=== PATIENT | female | born 1975 | race Caucasian/White ===

== ENCOUNTER → 2021-11-13 | Outpatient (CLI) | payer OTHER ==
[~2021-11-13] MED LIST: AMBI5TAB PO; ATIV1TAB10 PO; DRIS50003 PO; ERGO500029; LIDO1ADH20 TP; MELO15TA28 PO; METH-1164 PO; ONDA-83 PO; TOPI200T7 PO; ZOLM2.5T14 PO
== END ==
LOC: M PLALAB 13:15
PROVIDERS: ATTEND Surgery
DX: Z15.09 Genetic susceptibility to other malignant neoplasm (principal)

== ENCOUNTER → 2021-11-13 | Outpatient (CLI) | payer OTHER ==
[2021-11-13 13:20] VITALS: BP 124/78
== END ==
LOC: M WHCPRO 11:47
PROVIDERS: ATTEND Surgery
DX: C50.412 Malignant neoplasm of upper-outer quadrant of left female breast (principal)

== ENCOUNTER → 2021-11-19 | Outpatient (CLI) | payer OTHER ==
[~2021-11-19] MED LIST changes: -ERGO500029
[2021-11-19 12:15] LABS: BLOOD UREA NITROGEN 10 MG/DL (7-18); CALCIUM LEVEL 9.1 MG/DL (8.5-10.1); CARBON DIOXIDE LEVEL 30 MEQ/L (21-32); CHLORIDE LEVEL 105 MEQ/L (98-107); CREATININE FOR GFR 0.74 MG/DL (0.55-1.30); GLOMERULAR FILTRATION RATE > 60.0 (>58); GLUCOSE, FASTING 101 MG/DL (70-100); POTASSIUM SERUM 4.2 MEQ/L (3.5-5.1); SODIUM LEVEL 138 MEQ/L (136-145)
== END ==
LOC: M PLALAB 08:41
PROVIDERS: ATTEND Surgery
DX: C50.412 Malignant neoplasm of upper-outer quadrant of left female breast (principal)

== ENCOUNTER → 2021-11-28 | Outpatient (CLI) | payer OTHER ==
[~2021-11-28] MED LIST changes: +ERGO500029; +PROHANCE 279.3MG/ML 15ML VIAL As Ordered ONE
== END ==
LOC: M RAD 14:59
PROVIDERS: ATTEND Surgery
DX: C50.412 Malignant neoplasm of upper-outer quadrant of left female breast (principal)
CPT/HCPCS: 76856; A9576; C8908

== ENCOUNTER → 2021-11-28 | Outpatient (CLI) | payer OTHER ==
[~2021-11-28] MED LIST changes: -PROHANCE 279.3MG/ML 15ML VIAL As Ordered ONE
== END ==
LOC: M WHC 12:28
PROVIDERS: ATTEND Nurse Practitioner Family
DX: T83.31XA Breakdown (mechanical) of intrauterine contraceptive device, initial encounter (principal)

== ENCOUNTER → 2021-11-29 | Outpatient (CLI) | payer OTHER | LOC: M ONCR 10:09 | PROVIDERS: ATTEND General Practice | DX: C50.412 Malignant neoplasm of upper-outer quadrant of left female breast (principal); E78.5 Hyperlipidemia, unspecified; F31.9 Bipolar disorder, unspecified; G43.909 Migraine, unspecified, not intractable, without status migrainosus; M54.9 Dorsalgia, unspecified; Z79.1 Long term (current) use of non-steroidal anti-inflammatories (NSAID); Z79.899 Other long term (current) drug therapy; Z80.3 Family history of malignant neoplasm of breast; Z80.9 Family history of malignant neoplasm, unspecified; Z88.0 Allergy status to penicillin; Z88.8 Allergy status to other drugs, medicaments and biological substances ==

== ENCOUNTER → 2021-12-06 | Outpatient (CLI) | payer OTHER ==
[~2021-12-06] MED LIST changes: +GASTROGRAFIN SOLUTION 30ML (Q9963) As Ordered ONE; +ISOVUE-370 76% 100ML VIAL As Ordered ONE
== END ==
LOC: M RAD 08:41
PROVIDERS: ATTEND Nurse Practitioner Family
DX: N85.9 Noninflammatory disorder of uterus, unspecified (principal); R19.00 Intra-abdominal and pelvic swelling, mass and lump, unspecified site
CPT/HCPCS: 74177; Q9963; Q9967

== ENCOUNTER → 2022-01-12 | Outpatient (CLI) | payer OTHER ==
[~2022-01-12] MED LIST changes: +ACET-907 PO; -ERGO500029; +ERGO500029 PO; +GAS-62.5 PO; -GASTROGRAFIN SOLUTION 30ML (Q9963) As Ordered ONE; +IBUP-1114 PO; -ISOVUE-370 76% 100ML VIAL As Ordered ONE
== END ==
LOC: M LABSMTC 11:31
PROVIDERS: ATTEND Anesthesiology
DX: Z01.812 Encounter for preprocedural laboratory examination (principal); Z20.822 Contact with and (suspected) exposure to COVID-19

== ENCOUNTER 2022-01-16 07:48 | Observation (INO) | payer OTHER ==
[~2022-01-16] VITALS: Ht 172.7 cm; Wt 71.5 kg
[2022-01-16] VITALS (7 sets, daily range): BP systolic 111–124; BP diastolic 65–92
[~2022-01-16 07:48] MED LIST changes: +CLINDAMYCIN 900 MG in IV 1 EA IV ONE; +HEPARIN SOD (PORCINE) 5000UNITS/ML 1ML VIAL/SYRINGE SQ ONE
[2022-01-16] MEDS ORDERED: LR 1,000 ML IV SCH ×2 (08:15→15:30)
[2022-01-16] MEDS ORDERED: ROCURONIUM BROMIDE 50 MG/5 ML VIAL As Ordered ONE ×2 (10:35→12:37)
[2022-01-16] MEDS ORDERED: propofoL 200 MG/20 ML VIAL As Ordered ONE (10:35)
[2022-01-16] MEDS ORDERED: LIDOCAINE 2% 100MG/5ML SDV (FOR ANES.) As Ordered ONE (10:35)
[2022-01-16] MEDS ORDERED: fentaNYL 100 MCG/2 ML INJECTION As Ordered ONE (10:36)
[2022-01-16] MEDS ORDERED: MIDAZOLAM INJ 2MG/2ML VIAL (J2250 PER 1MG) As Ordered ONE (10:36)
[2022-01-16] MEDS ORDERED: BUPIVACAINE LIPOSOME/PF 1.3% 20ML VIAL (13.3MG/ML)(EXPAREL) As Ordered ONE (10:37)
[2022-01-16] MEDS ORDERED: GENTAMICIN SULF 80MG/2ML VIAL As Ordered ONE (10:37)
[2022-01-16] MEDS ORDERED: BUPIVACAINE HCL 0.25% 10ML VIAL As Ordered ONE (10:37)
[2022-01-16] MEDS ORDERED: CLINDAMYCIN 900 MG in IV 1 EA IV ONE (10:40)
[2022-01-16] MEDS ORDERED: SCOPOLAMINE 1MG TRANSDERMAL PATCH TOP ONE (11:00)
[2022-01-16] MEDS ORDERED: dexameTHASONE 4 MG/ML 1ML VIAL (J1100 PER 1MG) As Ordered ONE (11:36)
[2022-01-16] MEDS ORDERED: METOCLOPRAMIDE INJ 10MG/2ML VIAL (J2765 PER 1) As Ordered ONE (11:59)
[2022-01-16] MEDS ORDERED: ONDANSETRON 4MG 2ML VIAL As Ordered ONE ×2 (11:59→15:43)
[2022-01-16] MEDS ORDERED: HYDROmorphone HCL 2MG/ML 1ML VIAL As Ordered ONE (11:59)
[2022-01-16] MEDS ORDERED: ACETAMINOPHEN 1000MG 100ML IV BTL (OFIRMEV) (J0131 PER 10MG) As Ordered ONE (11:59)
[2022-01-16] MEDS ORDERED: NITROGLYCERIN 2% OINT 1 GM *U/D* PKT As Ordered ONE (14:31)
[2022-01-16] MEDS ORDERED: ONDANSETRON 4MG 2ML VIAL IV PRN ×2 (15:15→15:30)
[2022-01-16] MEDS ORDERED: MORPHINE 2 MG/ML 1ML VIAL IV PRN (15:25)
[2022-01-16] MEDS ORDERED: NITROGLYCERIN 2% OINT 1 GM *U/D* PKT TOP PRN (15:25)
[2022-01-16] MEDS ORDERED: HYDROMORPHONE HCL 0.5 MG/ 0.5 ML SYRINGE (J1170 PER 1) IV PRN (15:30)
[2022-01-16] MEDS ORDERED: fentaNYL 100 MCG/2 ML INJECTION IV PRN (15:30)
[2022-01-16] MEDS ORDERED: oxyCODONE 5MG TAB PO PRN (15:30)
[2022-01-16] MEDS ORDERED: PROMETHAZINE 25MG/ML 1ML VIAL IV PRN (16:05)
[2022-01-16] MEDS: LR 1,000 ML IV SCH (18:00)
[2022-01-16] MEDS ORDERED: TOPI50TA9 PO (18:47)
[2022-01-16] MEDS ORDERED: IBUP1TAB6 PO (18:47)
[2022-01-16] MEDS ORDERED: ZOLM5TAB20 PO (18:47)
[2022-01-16] MEDS ORDERED: LIDO1PAD TOP (18:47)
[2022-01-16] MEDS ORDERED: SIME80CH5 PO (18:47)
[2022-01-16] MEDS ORDERED: ZOLP10TA2 PO (18:47)
[2022-01-16] MEDS ORDERED: HOME MED LIST COMPLETE! XX SCH (18:50)
[2022-01-16] MEDS: CLINDAMYCIN 900 MG in IV 1 EA IV SCH (19:58)
[2022-01-16] MEDS: traMADol 50 MG TAB PO PRN (21:20)
[2022-01-16] MEDS: HEPARIN SOD (PORCINE) 5000UNITS/ML 1ML VIAL/SYRINGE SQ SCH (23:19)
[2022-01-17 02:00] VITALS: BP 118/70
[2022-01-17] MEDS: ACETAMINOPHEN TAB 650MG DOSE (2X325MG) PO PRN ×2 (02:09→09:15)
[2022-01-17] MEDS: CLINDAMYCIN 900 MG in IV 1 EA IV SCH ×2 (03:54→11:24)
[2022-01-17] MEDS: traMADol 50 MG TAB PO PRN ×2 (04:04→10:23)
[2022-01-17] MEDS: LR 1,000 ML IV SCH (04:35)
[2022-01-17 06:00] VITALS: BP 105/65
[2022-01-17] MEDS: HEPARIN SOD (PORCINE) 5000UNITS/ML 1ML VIAL/SYRINGE SQ SCH (06:17)
[2022-01-17 10:00] VITALS: BP 100/67
[2022-01-17] MEDS ORDERED: TRAM50TA2 PO (11:15)
[2022-01-17] MEDS ORDERED: NITR2OI TOP (11:15)
== END 2022-01-17 13:30 | disposition home or self-care (01) ==
LOC: M SDC 07:48 → M MS5PR 15:15
PROVIDERS: ADMIT Surgery; ATTEND Surgery
DX: C50.412 Malignant neoplasm of upper-outer quadrant of left female breast (principal); C77.9 Secondary and unspecified malignant neoplasm of lymph node, unspecified; G43.909 Migraine, unspecified, not intractable, without status migrainosus; F41.9 Anxiety disorder, unspecified; F32.A Depression, unspecified; G47.00 Insomnia, unspecified; Z88.0 Allergy status to penicillin; Z88.8 Allergy status to other drugs, medicaments and biological substances; Z79.899 Other long term (current) drug therapy
CPT/HCPCS: 19303; 19357; 36415; 38525; 78195; 86850; 86900; 86901; 88300; 88305; 88307; 88331; 96365; 96366; 96372; 96375; A9520; C1789; C9290; G0378; J0131; J1100; J1170; J1580; J1644; J2250; J2405; J2550; J2765; J3010

== ENCOUNTER 2022-01-30 07:19 | Day surgery (SDC) | payer OTHER ==
[~2022-01-30] VITALS: Ht 172.7 cm; Wt 69.9 kg
[~2022-01-30 07:19] MED LIST changes: -CLINDAMYCIN 900 MG in IV 1 EA IV ONE; -HEPARIN SOD (PORCINE) 5000UNITS/ML 1ML VIAL/SYRINGE SQ ONE; +IBUP1TAB6 PO; +LIDO1PAD TOP; +NITR2OI TOP; +SIME80CH5 PO; +TOPI50TA9 PO; +TRAM50TA2 PO; +ZOLM5TAB20 PO; +ZOLP10TA2 PO
[2022-01-30 08:00] LABS: HEMATOCRIT 39.2 % (36.0-47.0); HEMOGLOBIN 13.8 g/dl (12.0-15.5); MEAN CORPUSCULAR HEMOGLOBIN 34.3 pg (27.0-33.0); MEAN CORPUSCULAR HGB CONC 35.2 g/dl (32.0-36.5); MEAN CORPUSCULAR VOLUME 97.5 fl (80.0-96.0); PLATELET COUNT, AUTOMATED 404 10^3/uL (150-450); RED BLOOD COUNT 4.02 10^6/uL (4.00-5.40); WHITE BLOOD COUNT 5.3 10^3/uL (4.0-10.0)
[2022-01-30] MEDS ORDERED: MIDAZOLAM INJ 2MG/2ML VIAL (J2250 PER 1MG) As Ordered ONE (08:03)
[2022-01-30] MEDS ORDERED: LIDOCAINE 2% 100MG/5ML SDV (FOR ANES.) As Ordered ONE (08:03)
[2022-01-30] MEDS ORDERED: dexameTHASONE 4 MG/ML 1ML VIAL (J1100 PER 1MG) As Ordered ONE (08:03)
[2022-01-30] MEDS ORDERED: fentaNYL 100 MCG/2 ML INJECTION As Ordered ONE (08:03)
[2022-01-30] MEDS ORDERED: ONDANSETRON 4MG 2ML VIAL As Ordered ONE (08:03)
[2022-01-30] MEDS ORDERED: propofoL 200 MG/20 ML VIAL As Ordered ONE (08:03)
[2022-01-30] MEDS ORDERED: SCOPOLAMINE 1MG TRANSDERMAL PATCH TOP ONE (08:20)
[2022-01-30] MEDS ORDERED: BUPIVACAINE HCL 0.25% 30ML VIAL As Ordered ONE (08:24)
[2022-01-30] MEDS ORDERED: BUPIVACAINE LIPOSOME/PF 1.3% 20ML VIAL (13.3MG/ML)(EXPAREL) As Ordered ONE (08:24)
[2022-01-30] MEDS ORDERED: GENTAMICIN SULF 80MG/2ML VIAL As Ordered ONE (08:24)
[2022-01-30] MEDS ORDERED: CIPROFLOXACIN/D5W 400 MG/200 ML BAG (J0744) As Ordered ONE (08:49)
[2022-01-30] MEDS ORDERED: diphenhydrAMINE 50MG/ML VIAL As Ordered ONE (08:52)
[2022-01-30] MEDS ORDERED: CIPROFLOXACIN 400 MG in IV 1 EA IV ONE (09:25)
[2022-01-30] MEDS ORDERED: PHENYLephrine 500MCG 5ML (100MCG/ML) SYRINGE As Ordered ONE (09:26)
[2022-01-30] MEDS ORDERED: ePHEDrine SULFATE 25 MG/5 ML(5MG/ML) SYRINGE As Ordered ONE (09:43)
[2022-01-30] MEDS ORDERED: ACETAMINOPHEN 1000MG 100ML IV BAG As Ordered ONE (09:46)
[2022-01-30] MEDS ORDERED: METOCLOPRAMIDE INJ 10MG/2ML VIAL (J2765 PER 1) IV PRN ×2 (10:05→12:10)
[2022-01-30] MEDS ORDERED: ONDANSETRON 4MG 2ML VIAL IV PRN (10:05)
[2022-01-30] MEDS ORDERED: oxyCODONE 5MG TAB PO PRN ×2 (10:05→12:10)
[2022-01-30] MEDS ORDERED: LR 1,000 ML IV SCH (10:05)
[2022-01-30] MEDS ORDERED: fentaNYL 100 MCG/2 ML INJECTION IV PRN (10:05)
[2022-01-30 12:24] VITALS: BP 110/73
[2022-01-30] MEDS ORDERED: CIPR-249 PO (13:56)
[2022-01-30] MEDS ORDERED: TRAM50TA2 PO (13:57)
== END 2022-01-30 13:45 | disposition home or self-care (01) ==
LOC: M SDC 07:19
PROVIDERS: ATTEND Plastic Surgery Surgery of the Hand
DX: C50.412 Malignant neoplasm of upper-outer quadrant of left female breast (principal); Z98.82 Breast implant status; Z80.3 Family history of malignant neoplasm of breast; Z79.1 Long term (current) use of non-steroidal anti-inflammatories (NSAID); F41.9 Anxiety disorder, unspecified; F32.A Depression, unspecified; G43.909 Migraine, unspecified, not intractable, without status migrainosus; M54.2 Cervicalgia; E78.00 Pure hypercholesterolemia, unspecified; Z88.0 Allergy status to penicillin; Z88.8 Allergy status to other drugs, medicaments and biological substances
CPT/HCPCS: 19380; 85027; 87635; 88304; J0131; J0744; J1100; J1200; J1580; J2250; J2370; J2405; J2765; J3010

== ENCOUNTER → 2022-02-17 | Outpatient (CLI) | payer OTHER ==
[~2022-02-17] MED LIST changes: +CIPR-249 PO; +VENL37TA PO
== END ==
LOC: M WHC 13:14
PROVIDERS: ATTEND Specialist
DX: C50.912 Malignant neoplasm of unspecified site of left female breast (principal); M85.89 Other specified disorders of bone density and structure, multiple sites

== ENCOUNTER 2022-03-20 09:37 | Day surgery (SDC) | payer OTHER ==
[~2022-03-20] VITALS: Ht 172.7 cm; Wt 71.7 kg
[~2022-03-20 09:37] MED LIST changes: +CALTTAB6 PO
[2022-03-20] MEDS ORDERED: LR 1,000 ML IV SCH (10:05)
[2022-03-20] MEDS ORDERED: fentaNYL 100 MCG/2 ML INJECTION As Ordered ONE (10:42)
[2022-03-20] MEDS ORDERED: propofoL 200 MG/20 ML VIAL As Ordered ONE (10:42)
[2022-03-20] MEDS ORDERED: MIDAZOLAM INJ 2MG/2ML VIAL As Ordered ONE (10:42)
[2022-03-20] MEDS ORDERED: ONDANSETRON 4MG 2ML VIAL As Ordered ONE (10:42)
[2022-03-20] MEDS ORDERED: LIDOCAINE 2% 100MG/5ML SDV (FOR ANES.) As Ordered ONE (10:42)
[2022-03-20] MEDS ORDERED: CLINDAMYCIN 900 MG in IV 1 EA IV ONE (10:50)
[2022-03-20] MEDS ORDERED: LIDOCAINE 5% OINT 30GM TUBE As Ordered ONE (11:10)
[2022-03-20] MEDS ORDERED: SCOPOLAMINE 1MG TRANSDERMAL PATCH TOP ONE (11:10)
[2022-03-20] MEDS ORDERED: BUPIVACAINE HCL 0.25% 10ML VIAL As Ordered ONE (12:22)
[2022-03-20] MEDS ORDERED: BUPIVACAINE LIPOSOME/PF 1.3% 20ML VIAL (13.3MG/ML)(EXPAREL) As Ordered ONE (12:23)
[2022-03-20] MEDS ORDERED: GENTAMICIN SULF 80MG/2ML VIAL As Ordered ONE (12:23)
[2022-03-20] MEDS ORDERED: diphenhydrAMINE 50MG/ML VIAL As Ordered ONE (12:53)
[2022-03-20] MEDS ORDERED: ACETAMINOPHEN 1000MG 100ML IV BAG As Ordered ONE (14:05)
[2022-03-20] MEDS ORDERED: METOCLOPRAMIDE INJ 10MG/2ML VIAL As Ordered ONE (14:05)
[2022-03-20] MEDS ORDERED: TRAM50TA2 PO (14:44)
[2022-03-20] MEDS ORDERED: SEVOFLURANE INHAL SOLN 250 ML BTL As Ordered ONE (14:53)
[2022-03-20 16:09] VITALS: BP 128/77
[2022-04-01] MEDS ORDERED: ONDA-84 PO (11:32)
[2022-04-01] MEDS ORDERED: PROC10TA5 PO (11:35)
[2022-04-01] MEDS ORDERED: MAGICMW SSP (11:38)
[2022-04-01] MEDS ORDERED: LIDO1CRE42 TOP (11:39)
== END 2022-03-20 16:16 | disposition home or self-care (01) ==
LOC: M SDC 09:37
PROVIDERS: ATTEND Plastic Surgery Surgery of the Hand
DX: T81.31XA Disruption of external operation (surgical) wound, not elsewhere classified, initial encounter (principal); C50.912 Malignant neoplasm of unspecified site of left female breast; M54.9 Dorsalgia, unspecified; F41.9 Anxiety disorder, unspecified; F32.A Depression, unspecified; Z79.899 Other long term (current) drug therapy; G43.909 Migraine, unspecified, not intractable, without status migrainosus
CPT/HCPCS: 11970; 87428; 88300; 88304; C9290; J1100; J2405

== ENCOUNTER → 2022-04-07 | Outpatient (CLI) | payer OTHER ==
[~2022-04-07] MED LIST changes: +LIDO1CRE42 TOP; +LIDOCAINE 1% MDV 20ML VIAL As Ordered ONE; +MAGICMW SSP; +MIDAZOLAM INJ 2MG/2ML VIAL As Ordered ONE; +NS 1,000 ML IV SCH; +ONDA-84 PO; +PROC10TA5 PO; +PROMETHAZINE 25MG/ML 1ML VIAL As Ordered ONE; +VANCOMYCIN 1000MG/20ML VIAL As Ordered ONE; +VANCOMYCIN HCL 1,000 MG, VIAL MATE ADAPTER 1 EACH in NS 250 ML IV ONE; +diphenhydrAMINE 50MG/ML VIAL As Ordered ONE; +fentaNYL 100 MCG/2 ML INJECTION As Ordered ONE
[2022-04-07 14:52] VITALS: BP 112/61
== END ==
LOC: M IRPRO 10:24
PROVIDERS: ATTEND Specialist
DX: C50.912 Malignant neoplasm of unspecified site of left female breast (principal)
CPT/HCPCS: 36561; 99152; 99153; C1769; C1788; C1894

== ENCOUNTER → 2022-04-22 | Outpatient (POV) | payer OTHER ==
[~2022-04-22] VITALS: Ht 172.7 cm; Wt 70.9 kg
[~2022-04-22] MED LIST changes: -LIDOCAINE 1% MDV 20ML VIAL As Ordered ONE; -MIDAZOLAM INJ 2MG/2ML VIAL As Ordered ONE; -NS 1,000 ML IV SCH; -PROMETHAZINE 25MG/ML 1ML VIAL As Ordered ONE; +TRAN1DIS4 TOP; -VANCOMYCIN 1000MG/20ML VIAL As Ordered ONE; -VANCOMYCIN HCL 1,000 MG, VIAL MATE ADAPTER 1 EACH in NS 250 ML IV ONE; -diphenhydrAMINE 50MG/ML VIAL As Ordered ONE; -fentaNYL 100 MCG/2 ML INJECTION As Ordered ONE
[2022-04-22 10:40] VITALS: BP 113/76
== END ==
LOC: M IRPOV 10:32
PROVIDERS: ATTEND Radiology Diagnostic Radiology
DX: Z45.2 Encounter for adjustment and management of vascular access device (principal); Z88.0 Allergy status to penicillin; Z88.8 Allergy status to other drugs, medicaments and biological substances

== ENCOUNTER → 2022-04-30 | Outpatient (CLI) | payer OTHER ==
[~2022-04-30] MED LIST changes: +ISOVUE-370 76% 100ML VIAL As Ordered ONE
== END ==
LOC: M RAD 16:27
PROVIDERS: ATTEND Specialist
DX: C50.912 Malignant neoplasm of unspecified site of left female breast (principal)
CPT/HCPCS: 71260; Q9967

== ENCOUNTER → 2022-08-04 | Outpatient (CLI) | payer OTHER ==
[~2022-08-04] MED LIST changes: -ISOVUE-370 76% 100ML VIAL As Ordered ONE; +LEVO1TAB39 PO; +LEXA1TAB PO; +LORA1TAB23 PO; +METO10TA2 PO; +ONDA4TAB6 PO; +PROM25TA12 PO; +TOPI-254 PO; -TOPI50TA9 PO; +ZYPR10TA PO
== END ==
LOC: M WHC 14:36
PROVIDERS: ATTEND Nurse Practitioner Women's Health
DX: C50.412 Malignant neoplasm of upper-outer quadrant of left female breast (principal); Z90.12 Acquired absence of left breast and nipple; Z98.82 Breast implant status
CPT/HCPCS: 77065; G0279

== ENCOUNTER → 2022-12-24 | Outpatient (CLI) | payer OTHER ==
[~2022-12-24] MED LIST changes: -LIDO1CRE42 TOP; +LIDO30CR18 TOP; +TAMO20TA8 PO
== END ==
LOC: M RAD 12:17
PROVIDERS: ATTEND Specialist
DX: M16.0 Bilateral primary osteoarthritis of hip (principal)

== ENCOUNTER → 2023-08-05 | Outpatient (CLI) | payer OTHER ==
[~2023-08-05] MED LIST changes: +ANAS1TAB2 PO; +LETR2.5T2 PO; +NEUR100C PO; +PANT40TA29 PO; +TOPI-21 PO; -TOPI-254 PO
== END ==
LOC: M WHC 12:33
PROVIDERS: ATTEND Nurse Practitioner Women's Health
DX: Z12.31 Encounter for screening mammogram for malignant neoplasm of breast (principal); C50.412 Malignant neoplasm of upper-outer quadrant of left female breast

== ENCOUNTER → 2023-09-02 | Outpatient (CLI) | payer OTHER ==
[~2023-09-02] MED LIST changes: +ONDA-282 PO; -ONDA4TAB6 PO
== END ==
LOC: M RAD 09:20
PROVIDERS: ATTEND Specialist
DX: C50.919 Malignant neoplasm of unspecified site of unspecified female breast (principal)
CPT/HCPCS: 78306; A9503

== ENCOUNTER → 2023-10-16 | Outpatient (CLI) | payer OTHER ==
[~2023-10-16] MED LIST changes: +GABA-1171 PO; +PROHANCE 279.3MG/ML 15ML VIAL ONE
== END ==
LOC: M PLAIMG 10:37
PROVIDERS: ATTEND Physician Assistant Medical
DX: Z12.31 Encounter for screening mammogram for malignant neoplasm of breast (principal); Z98.82 Breast implant status; Z85.3 Personal history of malignant neoplasm of breast; Z90.12 Acquired absence of left breast and nipple
CPT/HCPCS: A9576; C8908

== ENCOUNTER → 2024-04-27 | Outpatient (CLI) | payer OTHER ==
[~2024-04-27] MED LIST changes: +BENA25CA4 PO; +DULO1CAP4 PO; +METH4PACK; -PROHANCE 279.3MG/ML 15ML VIAL ONE; +TRIA1OI TOP
== END ==
LOC: M WHC 10:40
PROVIDERS: ATTEND Specialist
DX: C50.919 Malignant neoplasm of unspecified site of unspecified female breast (principal); Z79.899 Other long term (current) drug therapy; M85.89 Other specified disorders of bone density and structure, multiple sites